=== PATIENT | male | born 1960 | race Caucasian/White ===

== ENCOUNTER 2017-04-20 07:53 | Emergency (ER) | payer BC, OTHER ==
[~2017-04-20] VITALS: Ht 139.7 cm; Wt 86.2 kg
[~2017-04-20 07:53] MED LIST: LISINOPRIL10 MG; MEVACOR
== END 2017-04-20 08:30 | disposition home or self-care (01) ==
LOC: CED 07:53 → CFTX 07:53
DX: S31.21XA Laceration without foreign body of penis, initial encounter (principal); I10 Essential (primary) hypertension; Z23 Encounter for immunization; W45.8XXA Other foreign body or object entering through skin, initial encounter; Y92.89 Other specified places as the place of occurrence of the external cause
CPT/HCPCS: 90471; 90715; 99283